=== PATIENT | male | born 1955 | race Caucasian/White ===

== ENCOUNTER → 2016-10-18 | Outpatient (CLI) | payer OTHER ==
[~2016-10-18] MED LIST: ATOR10TA88 PO; DOCU-94 PO; SERT-234 PO; SERT50TA PO; TAMS0.4C38 PO; TRAZ100T29 PO
== END | disposition home or self-care (01) ==
LOC: C.LAB 11:25
PROVIDERS: ATTEND Urology
DX: C61 Malignant neoplasm of prostate (principal)

== ENCOUNTER → 2016-11-02 | Outpatient (CLI) | payer OTHER ==
[~2016-11-02] MED LIST changes: +OPTIRAY 320 IV PRN
--- NOTE | 2016-11-02 15:25 | DIAGNOSTIC IMAGING REPORT ---
WHOLE-BODY NUCLEAR BONE SCAN CLINICAL HISTORY: Prostate cancer. COMPARISON STUDY: Abdominal CT dated 11/02/16. TECHNIQUE: Three hours following the IV administration of 27.5 mCi of technetium 99m MDP, whole body nuclear bone scan was performed in the anterior and posterior projections. FINDINGS: There is no abnormal osseous tracer deposition identified typical in appearance for bony metastatic disease. Low-level and typically degenerative activity is seen within the shoulders and hips. Low-level activity in the cervical spine is also typical in appearance for degenerative change. There is expected excreted activity within the renal collecting system and bladder. IMPRESSION: There is no scintigraphic evidence of osseous metastatic disease. Electronically signed by: Samson Luna M.D. 11/02/2016 3:23 PM Dictated Date/Time: 11/02/2016 3:21 PM
--- NOTE | 2016-11-02 19:58 | DIAGNOSTIC IMAGING REPORT ---
CT OF THE ABDOMEN AND PELVIS WITH CONTRAST CLINICAL HISTORY: Prostate cancer. COMPARISON STUDY: None. TECHNIQUE: Following IV administration of 119 mL of Optiray-320, axial images of the abdomen and pelvis were obtained from the lung bases to the proximal femurs. Images were reviewed in the axial, sagittal, and coronal planes. IV contrast was administered without complication. CT DOSE: 313.95 mGy.cm FINDINGS: A 4 mm calcified nodule within the right middle lobe is benign. There is a 4 mm subpleural noncalcified nodule within the right lower lobe shown on image 11 of 100. This is likely benign. Note is made of a 1 cm cyst within the upper pole of the left kidney. There is no hydronephrosis. Several hepatic cysts are noted. A few subcentimeter hepatic lesions are too small to characterize but are likely benign. The spleen, adrenal glands and pancreas are normal. There are no enlarged abdominal or pelvic lymph nodes. There is moderate wall thickening of the bladder which is accentuated by underdistention. There is extensive sigmoid diverticulosis without evidence for acute diverticulitis. There is no evidence for a bowel obstruction. Note is made of brachytherapy seeds within the prostate gland. No suspicious osseous lesions are present. A 1 cm sclerotic lesion within the left iliac bone is suggestive of a bone island. IMPRESSION: 1. No evidence of metastatic disease within the abdomen or pelvis. 2. Tiny 4 mm subpleural nodule within the right lower lobe. This is likely benign but can be assessed on subsequent exams to ensure stability. 3. Moderate bladder wall thickening which is accentuated by underdistention. Electronically signed by: Angelito Ba M.D. 11/02/2016 7:57 PM Dictated Date/Time: 11/02/2016 1:24 PM
== END | disposition home or self-care (01) ==
LOC: C.NUCL 11:30
PROVIDERS: ATTEND Urology
DX: C61 Malignant neoplasm of prostate (principal); R91.1 Solitary pulmonary nodule

== ENCOUNTER → 2017-01-17 | Outpatient (CLI) | payer OTHER ==
[~2017-01-17] MED LIST changes: +ATOR10TA82 PO; -ATOR10TA88 PO; -OPTIRAY 320 IV PRN
== END | disposition home or self-care (01) ==
LOC: C.LAB 12:17
PROVIDERS: ATTEND Urology
DX: R97.20 Elevated prostate specific antigen [PSA] (principal)

== ENCOUNTER → 2017-01-25 | Outpatient (CLI) | payer OTHER ==
[2017-01-25 13:34] VITALS: BP 155/81; PULSE 91; TEMP 36.8; O2SAT 98
--- NOTE | 2017-01-25 15:19 | Radiation Oncology Follow-Up ---
Radiation Oncology Follow-Up Date of Visit January 25, 2017. (Trudi Alonso PA-C) Reason For Visit 6 month follow-up (Trudi Alonso PA-C) Radiation Completion Date 10/05/15 (Trudi Alonso PA-C) Diagnosis (1) Prostate cancer Status: Acute Onset Date: 06/02/2015 Location: left lobe of prostate Histology Subtype: adenocarcinoma Stage: ll (A biopsy stage) Permanent Comment: DIAGNOSIS: Prostate, adenocarcinoma, tiarra 3 + 3, PSA 5.74 , cT1c, group I Biopsy stage T2b N0M0 stage IIA Status post completion of prostate seed implant as monotherapy 10/05/2015 cesium -131 -> 115 Gy Last Edited By: Mike Francisco on Nov 03, 2015 15:43 (Trudi Alonso PA-C) History of Present Illness Mr. Connelly is a 61-year-old gentleman who recently presented with an elevated PSA of 5.74 on 05/25/2015. He was referred to Dr. Willard and was recommended to have TRUS guided biopsy. He underwent a biopsy on no 06/02/2015 which revealed a prostate gland that measured 34 cc. His pathology revealed Tiarra 3 +3 disease in the left mid and left anterior. 2/18 biopsy cores were positive for prostate cancer. Dr. Willard has discussed options including active surveillance, surgical resection and radiation therapy. We are now seeing the patient in consultation regarding the role of radiation therapy. He was treated with a prostate seed implant as monotherapy. This was performed 10/05/2015. He received 11,500 cGy (Trudi Alonso PA-C) Interim History He is been doing well over the past 6 months in regards to his urinary symptoms. Following his last visit the dysuria resolves without difficulty. He completed an AUA score sheet and gave a score 7 today. He completed expanded prostate cancer index composite for clinical practice and gave a score of 2 of 12 in urinary incontinence symptoms. He gave a score of 2 of 12 and urinary irritation symptoms. He gave a score of 0 of 12 and bowel symptoms. He gave a score of 2 of 12 and sexual symptoms. He gave a score of 2 of 12 and hormonal vitality symptoms. His total was 8 of 60. He has been followed closely by Dr. Perry. He has had an increase in his PSA. The PSA on 2016 was 12.500. His PSA on 01/17/2017 was 15.300. He underwent restaging studies in October. These included a CT of the abdomen and pelvis, as well as a bone scan. There is no metastatic disease found Dr. Perry has discussed rebiopsy should the PSA go higher at his next evaluation. This will be in April. He has continued on Flomax twice daily. Occasionally he does forget to take a pill and will have some mild difficulty with urination. (Trudi Alonso PA-C) Allergies Coded Allergies: POLLEN (Verified Allergy, Intermediate, Nasal drainage, 10/05/15) NO KNOWN DRUG ALLERGIES (Verified Allergy, Mild, ., 10/05/15) Home Medications Scheduled Atorvastatin (Lipitor), 1 TAB PO MID MORNING Docusate Sodium (Colace), 1 CAP PO DIRECTED Sertraline (Zoloft), 1 TAB PO HS Tamsulosin Hcl (Flomax), 1 CAP PO BID Trazodone Hcl (Trazodone), 100 MG PO HS Review of Systems Gastrointestinal: Symptoms: WNL GI Comments: No fiber supplements; Oral: Symptoms: No Problems Respiratory: Symptoms: WNL Other Respiratory: "has sinus drainage " Urinary: Symptoms: WNL, Frequency Comments: I drink a lot of fluids Skin: Symptoms: No Problems (Trudi Alonso PA-C) Physical Exam Vital Signs Date Time Temp Pulse Resp B/P Pulse Ox O2 Delivery O2 Flow Rate FiO2 01/25/17 13:34 36.8 91 18 155/81 98 Pain: Side: Bilateral Patient Pain Scale: 0 - 10 Initial Pain Intensity: 0.0 Fatigue: None General Appearance: no apparent distress Eyes: normal inspection, EOMI ENT: normal ENT inspection, hearing grossly normal Respiratory/Chest: lungs clear, no respiratory distress, no accessory muscle use Cardiovascular: regular rate, rhythm, no gallop, no murmur Abdomen: non tender, soft Extremities: no pedal edema Neurologic/Psychiatric: no motor/sensory deficits, alert, normal mood/affect Skin: warm/dry (Trudi Alonso PA-C) Laboratory Studies Test 11/02/16 12:06 01/17/17 12:21 POC Glucose 111 mg/dl (70-99) Prostate Specific Antigen 15.300 ng/ml (0.000-4.000) (Trudi Alonso PA-C) Additional Studies Patient: NANCY CONNELLY JR Address1: [address] [place] [address] Rec: [id number] Address2: [address] Acct ID: [id number] [facility] Zip: [place] [address] Date: 1955 Sex: M Room/Bed: Ref Phy: Vincenzo Weiss PA-C SC: C.NUCL Att Phy: Parrish Perry MD Report #: [id number] Dacia Phy: Vincenzo Weiss PA-C Test: TRIAGE RN Admit Phy: Heat Treatment Technician: ROXI Interpreting Phy: Samson Luna M.D. Diagnosis: PROSTATE CA Ordering Phy: Parrish Perry MD Service Date: 11/02/16 Admit Date: 11/02/16 MNE: [id number] CONF: DICTATED BY: Samson Luna M.D.]] CC: Vincenzo Weiss PA-C, David MD Endcc: [~ rep ct add3]] WHOLE-BODY NUCLEAR BONE SCAN CLINICAL HISTORY: Prostate cancer. COMPARISON STUDY: Abdominal CT dated 11/02/16. TECHNIQUE: Three hours following the IV administration of 27.5 mCi of technetium 99m MDP, whole body nuclear bone scan was performed in the anterior and posterior projections. FINDINGS: There is no abnormal osseous tracer deposition identified typical in appearance for bony metastatic disease. Low-level and typically degenerative activity is seen within the shoulders and hips. Low-level activity in the cervical spine is also typical in appearance for degenerative change. There is expected excreted activity within the renal collecting system and bladder. IMPRESSION: There is no scintigraphic evidence of osseous metastatic disease. Electronically signed by: Samson Luna M.D. 11/02/2016 3:23 PM Dictated Date/Time: 11/02/2016 3:21 PM Patient: NANCY CONNELLY JR Address1: [address] [place] [address] Rec: [id number] Address2: [address] Acct ID: [id number] [facility] Zip: [place] [address] Date: 1955 Sex: M Room/Bed: Ref Phy: Vincenzo Weiss PA-C SC: C.NUCL Att Phy: Parrish Perry MD Report #: [id number] Dacia Phy: Vincenzo Weiss PA-C Test: APIV Admit Phy: Heat Treatment Technician: CLINT Interpreting Phy: Angelito Ba MD Diagnosis: PROSTATE CA Ordering Phy: Parrish Perry MD Service Date: 11/02/16 Admit Date: 11/02/16 MNE: [id number] CONF: DICTATED BY: Angelito Ba MD]] CC: Vincenzo Weiss PA-C, David MD Endcc: [~ rep ct add3]] CT OF THE ABDOMEN AND PELVIS WITH CONTRAST CLINICAL HISTORY: Prostate cancer. COMPARISON STUDY: None. TECHNIQUE: Following IV administration of 119 mL of Optiray-320, axial images of the abdomen and pelvis were obtained from the lung bases to the proximal femurs. Images were reviewed in the axial, sagittal, and coronal planes. IV contrast was administered without complication. CT DOSE: 313.95 mGy.cm FINDINGS: A 4 mm calcified nodule within the right middle lobe is benign. There is a 4 mm subpleural noncalcified nodule within the right lower lobe shown on image 11 of 100. This is likely benign. Note is made of a 1 cm cyst within the upper pole of the left kidney. There is no hydronephrosis. Several hepatic cysts are noted. A few subcentimeter hepatic lesions are too small to characterize but are likely benign. The spleen, adrenal glands and pancreas are normal. There are no enlarged abdominal or pelvic lymph nodes. There is moderate wall thickening of the bladder which is accentuated by underdistention. There is extensive sigmoid diverticulosis without evidence for acute diverticulitis. There is no evidence for a bowel obstruction. Note is made of brachytherapy seeds within the prostate gland. No suspicious osseous lesions are present. A 1 cm sclerotic lesion within the left iliac bone is suggestive of a bone island. IMPRESSION: 1. No evidence of metastatic disease within the abdomen or pelvis. 2. Tiny 4 mm subpleural nodule within the right lower lobe. This is likely benign but can be assessed on subsequent exams to ensure stability. 3. Moderate bladder wall thickening which is accentuated by underdistention. Electronically signed by: Angelito Ba M.D. 11/02/2016 7:57 PM Dictated Date/Time: 11/02/2016 1:24 PM (Trudi Alonso PA-C) Assessment & Plan Plan: Patient was seen and examined by Dr. Francisco. The findings of the elevated PSA were reviewed. We discussed decreasing the Flomax to one per day after supper. It is planned that he'll have a recheck PSA in April. If this continues to rise Dr. Perry has recommended a repeat biopsy. We asked her to return to our office in 6 months. He may call if he has any questions or concerns in the interim. (Trudi Alonso PA-C) I agree with note created by Trudi Alonso PA-C. I reviewed the patient's chart and information with her. I have examined and evaluated the patient. I reviewed relevant clinical information and answered the patient's and/or family' s questions. (Veeral. Francisco MD) Total Time In Follow-Up I spent 20 minutes speaking to the patient performing examination. I spent 15 minutes reviewing information and completing this note. (Trudi Alonso PA-C) I spent 15 minutes examining and counseling the patient. (Veeral. Francisco MD) Copy To Vincenzo Weiss PA-C; Parrish Perry MD
== END | disposition home or self-care (01) ==
LOC: C.ONC 13:26
PROVIDERS: ATTEND Physician Assistant Medical
DX: Z08 Encounter for follow-up examination after completed treatment for malignant neoplasm (principal); Z92.3 Personal history of irradiation; Z85.46 Personal history of malignant neoplasm of prostate

== ENCOUNTER → 2017-05-14 | Day surgery (SDC) | payer OTHER ==
[2017-05-02 08:35] VITALS: BMI 22.0
--- NOTE | 2017-05-02 09:03 | PAT Medication Instructions ---
Service Date May 02, 2017. Current Home Medication List Atorvastatin (Lipitor), 1 TAB PO MID MORNING Sertraline (Zoloft), 1 TAB PO Q2D Tamsulosin Hcl (Flomax), 1 CAP PO BID Trazodone Hcl (Trazodone), 100 MG PO HS Medication Instructions For Your Scheduled Surgery - Continue as directed: Sertraline (Zoloft), 1 TAB PO Q2D - Hold the following medications the morning of surgery: Tamsulosin Hcl (Flomax), 1 CAP PO BID - Take the following medications the morning of surgery with a sip of water: Atorvastatin (Lipitor), 1 TAB PO MID MORNING - Take the following medications as scheduled the night before surgery: Tamsulosin Hcl (Flomax), 1 CAP PO BID Trazodone Hcl (Trazodone), 100 MG PO HS If you have any questions please call us at [phone] or [phone] or [phone]
--- NOTE | 2017-05-02 09:41 | DIAGNOSTIC IMAGING REPORT ---
TWO VIEW CHEST CLINICAL HISTORY: Preoperative examination. FINDINGS: PA and lateral chest radiographs are compared to study dated 09/20/2015. The cardiomediastinal silhouette is unremarkable. A prominent epicardial fat pad is incidentally noted. There is atherosclerotic calcification of the thoracic aorta. Emphysema and chronic interstitial thickening are similar to previous. There is no airspace consolidation or pleural effusion. There is no pneumothorax. The skeletal structures appear osteopenic. The bony thorax appears intact. IMPRESSION: Emphysema with no active disease in the chest. Electronically signed by: Samson Luna M.D. 05/02/2017 9:40 AM Dictated Date/Time: 05/02/2017 9:34 AM
[2017-05-02 10:41] LABS: BASO % 0.3 %; BASO ABS # 0.02 K/uL (0-0.2); COMPLETE YES; EOS % 1.1 %; HEMATOCRIT 42.4 % (42-52); IG% 0.2 %; LYMPH % 26.8 %; LYMPH ABS # 1.64 K/uL (1.2-3.4); MEAN CELL VOLUME 90.4 fL (80-100); MEAN CORPUSCULAR HEMOGLOBIN 31.3 pg (25-34); MEAN CORPUSCULAR HGB CONC 34.7 g/dl (32-36); MEAN PLATELET VOLUME 10.9 fL (7.4-10.4); NEUT % 63.6 %; PLATELET COUNT 220 K/uL (130-400); RED BLOOD COUNT 4.69 M/uL (4.7-6.1); WHITE BLOOD COUNT 6.11 K/uL (4.8-10.8)
[2017-05-02 10:41] LABS: URINE APPEARANCE CLEAR (CLEAR); URINE BILIRUBIN NEG (NEG); URINE COLOR YELLOW; URINE NITRITE NEG (NEG); URINE SPECIFIC GRAVITY 1.013 (1.000-1.030); UROBILINOGEN NEG (NEG)
[2017-05-02 10:44] LABS: MANUAL MICROSCOPIC REQUIRED? NO; REVIEW REQ? NO
[2017-05-02 11:15] LABS: BUN/CREATININE RATIO 13.5 (10-20); CALCIUM 9.1 mg/dl (8.5-10.1); CREATININE 1.1 mg/dl (0.60-1.40); POTASSIUM 4.3 mmol/L (3.5-5.1)
[2017-05-02 11:19] LABS: PROSTATE SPECIFIC ANTIGEN 10.6 ng/ml (0.000-4.000)
[~2017-05-14] VITALS: Ht 180.3 cm; Wt 73.2 kg
[~2017-05-14] MED LIST changes: -ATOR10TA82 PO; +ATOR10TA88 PO; +CIPROFLOXACIN / D5W 400 MG IV SCH; -DOCU-94 PO; +FENTANYL CITRATE INJ 50 MCG/1 ML 2 ML VIAL ONE; +LACTATED RINGER'S 1000ML 1,000 ML IV SCH; +LIDOCAINE HCL 2% 2 ML VIAL (20MG/ML) ONE; +MIDAZOLAM HCL 1 MG/ML 2ML VIAL ONE; +PROPOFOL IV EMULSION 10 MG/ML 20 ML VIAL IV ONE; -SERT-234 PO
[2017-05-14 07:47] VITALS: BP 121/71; PULSE 79; TEMP 36.7; O2SAT 97; Ht 180.3 cm; Wt 73.2 kg
--- NOTE | 2017-05-14 08:06 | History & Physical Bridge Note ---
H&P Re-Evaluation Bridge Note: I have examined the patient, reviewed the History & Physical and in the interval since the performance of the History & Physical I have noted the following changes of clinical significance: No changes noted
--- NOTE | 2017-05-17 13:59 | EDITING REQUIRED CODING QUERY ---
DIAGNOSIS NEEDED To promote full compliance with coding requirements relating to patient care, physician participation is requested in all cases of instructor of sociology uncertainty. Please assist us with the question(s) below: Coding Question: The patient had a cancelled procedure as noted within the record. Please document the reason why the procedure was cancelled: Provider Response: DIAGNOSIS: Thank you for your assistance, Samantha Kwan - [employer] Television Line Technician
== END | disposition home or self-care (01) ==
LOC: C.ACU 07:27
PROVIDERS: ATTEND Urology
DX: Z01.812 Encounter for preprocedural laboratory examination (principal); Z01.818 Encounter for other preprocedural examination; C61 Malignant neoplasm of prostate; Z53.9 Procedure and treatment not carried out, unspecified reason

== ENCOUNTER → 2017-08-01 | Outpatient (CLI) | payer OTHER ==
[~2017-08-01] MED LIST changes: +ATOR10TA82 PO; -ATOR10TA88 PO; -CIPROFLOXACIN / D5W 400 MG IV SCH; -FENTANYL CITRATE INJ 50 MCG/1 ML 2 ML VIAL ONE; -LACTATED RINGER'S 1000ML 1,000 ML IV SCH; -LIDOCAINE HCL 2% 2 ML VIAL (20MG/ML) ONE; -MIDAZOLAM HCL 1 MG/ML 2ML VIAL ONE; -PROPOFOL IV EMULSION 10 MG/ML 20 ML VIAL IV ONE
[2017-08-01 14:03] VITALS: BP 148/84; PULSE 75; TEMP 37.1; O2SAT 96
--- NOTE | 2017-08-01 16:26 | Radiation Oncology Follow-Up ---
Radiation Oncology Follow-Up Date of Visit Aug 01, 2017. Reason For Visit 6 month follow-up Radiation Completion Date Seed Implant Monotherapy - 10/05/15 Diagnosis (1) Prostate cancer Status: Acute Onset Date: 06/02/2015 Location: left lobe of the prostate Histology Subtype: adenocarcinoma Stage: ll (biopsy stage) Permanent Comment: DIAGNOSIS: Prostate, adenocarcinoma, tiarra 3 + 3, PSA 5.74 , cT1c, group I Biopsy stage T2b N0M0 stage IIA Status post completion of prostate seed implant as monotherapy 10/05/2015 cesium -131 -> 115 Gy Last Edited By: Mike Francisco on Nov 03, 2015 15:43 History of Present Illness Mr. Connelly presented with an elevated PSA of 5.74 on 05/25/2015. He was referred to Dr. Willard and was recommended to have TRUS guided biopsy. He underwent a biopsy on no 06/02/2015 which revealed a prostate gland that measured 34 cc. His pathology revealed Tiarra 3+3 disease in the left mid and left anterior. 2/18 biopsy cores were positive for prostate cancer. Dr. Willard has discussed options including active surveillance, surgical resection and radiation therapy. We are now seeing the patient in consultation regarding the role of radiation therapy. He was treated with a prostate seed implant as monotherapy. This was performed on 10/05/2015. He received 11,500 cGy Interim History He feels that his urination has improved over this past 6 months. His AUA score was 5. The prior AUA score was 7. He completed expanded prostate cancer index composite for clinical practice and gave a score of 2 of 12 in urinary incontinence symptoms. He gave a score of 2 of 12 urinary irritation symptoms. He gave a score of one of 12 and bowel symptoms. He gave a score of 2 of 12 in sexual symptoms. He gave a score of one of 12 and hormonal vitality symptoms. His total was 8 of 60. At his last visit we had discussed decreasing Flomax to once a day. He did not follow the instructions. He has continued to take the Flomax daily. He does feel that his bowel status has improved since completing the radiation therapy. He has had follow-up PSAs. PSA was 10.600. He had a PSA 07/18/2017 that was 6.820. He was concerned that his PSA has not declined to a lower level. Allergies Coded Allergies: POLLEN (Verified Allergy, Intermediate, Nasal drainage, 05/14/17) NO KNOWN DRUG ALLERGIES (Verified Allergy, Mild, ., 05/14/17) Home Medications Scheduled Atorvastatin (Lipitor), 1 TAB PO MID MORNING Sertraline (Zoloft), 1 TAB PO Q2D Tamsulosin Hcl (Flomax), 1 CAP PO BID Trazodone Hcl (Trazodone), 100 MG PO HS Review of Systems Gastrointestinal: Symptoms: WNL GI Comments: Constipation related to diet - recc metamucil Oral: Symptoms: No Problems Respiratory: Symptoms: WNL Other Respiratory: Getting over a cold Urinary: Symptoms: WNL, Nocturia Comments: Nocturia x 1, See AUA & EPIC Skin: Symptoms: No Problems Physical Exam Vital Signs Date Time Temp Pulse Resp B/P (MAP) Pulse Ox O2 Delivery O2 Flow Rate FiO2 08/01/17 14:03 37.1 75 16 148/84 96 Fatigue: None General Appearance: no apparent distress Eyes: normal inspection, EOMI ENT: normal ENT inspection, hearing grossly normal Respiratory/Chest: lungs clear, no respiratory distress, no accessory muscle use Cardiovascular: regular rate, rhythm, no gallop, no murmur Abdomen: normal bowel sounds, non tender, soft, no organomegaly Extremities: no pedal edema Neurologic/Psychiatric: no motor/sensory deficits, alert, normal mood/affect Skin: warm/dry Lymphatic: no adenopathy Pain Management Pain Rating (0-10): 0 Laboratory Studies Test 05/02/17 00:00 05/02/17 09:08 07/18/17 13:26 Urine Color YELLOW Urine Appearance CLEAR (CLEAR) Urine pH 5.0 (4.5-7.5) Urine Specific [place] 1.013 (1.000-1.030) Urine Protein NEG (NEG) Urine Glucose (UA) NEG (NEG) Urine Ketones NEG (NEG) Urine Occult Blood NEG (NEG) Urine Nitrite NEG (NEG) Urine Bilirubin NEG (NEG) Urine Urobilinogen NEG (NEG) Urine Leukocyte Esterase NEG (NEG) White Blood Count 6.11 K/uL (4.8-10.8) Red Blood Count 4.69 M/uL (4.7-6.1) Hemoglobin 14.7 g/dL (14.0-18.0) Hematocrit 42.4 % (42-52) Mean Corpuscular Volume 90.4 fL (80-100) Mean Corpuscular Hemoglobin 31.3 pg (25-34) Mean Corpuscular Hemoglobin Concent 34.7 g/dl (32-36) Platelet Count 220 K/uL (130-400) Mean Platelet Volume 10.9 fL (7.4-10.4) Neutrophils (%) (Auto) 63.6 % Lymphocytes (%) (Auto) 26.8 % Monocytes (%) (Auto) 8.0 % Eosinophils (%) (Auto) 1.1 % Basophils (%) (Auto) 0.3 % Neutrophils # (Auto) 3.88 K/uL (1.4-6.5) Lymphocytes # (Auto) 1.64 K/uL (1.2-3.4) Monocytes # (Auto) 0.49 K/uL (0.11-0.59) Eosinophils # (Auto) 0.07 K/uL (0-0.5) Basophils # (Auto) 0.02 K/uL (0-0.2) RDW Standard Deviation 45.4 fL (36.4-46.3) RDW Coefficient of Variation 13.9 % (11.5-14.5) Immature Granulocyte % (Auto) 0.2 % Immature Granulocyte # (Auto) 0.01 K/uL (0.00-0.02) Sodium Level 140 mmol/L (136-145) Potassium Level 4.3 mmol/L (3.5-5.1) Chloride Level 109 mmol/L (98-107) Carbon Dioxide Level 27 mmol/L (21-32) Anion Gap 4.0 mmol/L (3-11) Blood Urea Nitrogen 15 mg/dl (7-18) Creatinine 1.10 mg/dl (0.60-1.40) Est Creatinine Clear Calc Drug Dose 74.9 ml/min Estimated GFR () 84.7 Estimated GFR (Non- 73.1 BUN/Creatinine Ratio 13.5 (10-20) Random Glucose 87 mg/dl (70-99) Calcium Level 9.1 mg/dl (8.5-10.1) Prostate Specific Antigen 10.600 ng/ml (0.000-4.000) 6.820 ng/ml (0.000-4.000) Additional Studies PSA is as reviewed above. Assessment & Plan Plan: Continue follow-up with Dr. Perry has an appointment with him at the end of the month. He has been instructed to decrease the Flomax to one per day. We discussed the PSA level. I obtained a PSA from 2013 to try to get a earlier baseline. On 01/21/2014 PSA was 3.81. We'll continue to follow the PSA. An appointment with our office is not required until next year. With seeing Dr. Perry at the end of the month he can give recommendations as to his next visit in urology and next PSA. He may call our office if he has any questions or concerns. Assessment & Plan (Attending) ADDENDUM: I agree with note created by Trudi Alonso PA-C. I reviewed the patient's chart and information with her. I have examined and evaluated the patient. I reviewed relevant clinical information and answered the patient's and /or family's questions. MANAGER NURSING HOME Total Time In Follow-Up I spent 20 minutes speaking to the patient and performing examination. I spent 15 minutes reviewing information and completing this note. Total Time (Attending) In Follow-Up I spent 15 minutes examining and counseling the patient. MANAGER NURSING HOME Copy To Vincenzo Weiss PA-C; Parrish Perry MD
== END | disposition home or self-care (01) ==
LOC: C.ONC 14:01
PROVIDERS: ATTEND Physician Assistant Medical
DX: Z08 Encounter for follow-up examination after completed treatment for malignant neoplasm (principal); Z92.3 Personal history of irradiation; Z85.46 Personal history of malignant neoplasm of prostate

== ENCOUNTER → 2017-11-22 | Outpatient (CLI) | payer OTHER | END | disposition home or self-care (01) | LOC: C.LAB 09:56 | PROVIDERS: ATTEND Urology | DX: C61 Malignant neoplasm of prostate (principal) ==